=== PATIENT | female | born 1980 | race Two or more races ===

== ENCOUNTER 2023-12-17 17:29 | Emergency (ER) | payer OTHER ==
[~2023-12-17] VITALS: Ht 160 cm; Wt 63.5 kg
[2023-12-17] MEDS ORDERED: RINGERS SOLUTION,LACTATED 1,000 ML IV STA (22:44)
[2023-12-18 00:08] LABS: INR 0.97; PARTIAL THROMBOPLASTIN TIME 28.3 SECONDS (22.0-34.0); PROTHROMBIN TIME 10.2 SECONDS (9.0-11.5)
[2023-12-18 00:10] LABS: CALCIUM 9.5 mg/dL (8.5-10.1); CREATININE SERUM 0.7 mg/dL (0.55-1.02); GFR 90.49; POTASSIUM 4.03 mEq/L (3.5-5.1)
[2023-12-18 00:13] LABS: HEMATOCRIT 41.9 % (36.0-45.00); HEMOGLOBIN 13.5 g/dL (12.0-15.00); MEAN CELL VOLUME 75.6 fL (80.00-100.00); MEAN CORPUSCULAR HEMOGLOBIN 24.4 pg (27.00-32.0); MEAN CORPUSCULAR HGB CONC 32.3 g/dl (32.0-36.0); PLATELET COUNT 202 K/uL (150-450); RED BLOOD COUNT 5.54 M/uL (4.00-6.00); RED CELL DISTRIBUTION WIDTH 14.2 % (11.5-14.5)
[2023-12-18] MEDS ORDERED: KETO10TA2 PO (05:52)
== END 2023-12-18 05:57 ==
LOC: ER 17:30
DX: N93.9 Abnormal uterine and vaginal bleeding, unspecified (principal); N83.209 Unspecified ovarian cyst, unspecified side